=== PATIENT | male | born 1985 | race Caucasian/White ===

== ENCOUNTER 2021-09-22 12:58 | Emergency (ER) | payer BC ==
[2021-09-22] MEDS ORDERED: EPIPEN 2-P0.3 MG/0.3 INJ (15:47)
== END 2021-09-22 15:55 | disposition home or self-care (01) ==
LOC: ER1 12:58
DX: L50.0 Allergic urticaria (principal)
CPT/HCPCS: 96374; 96375; 99282; J1100; J1200

== ENCOUNTER 2021-12-29 06:22 | Emergency (ER) | payer BC ==
[~2021-12-29 06:22] MED LIST: EPIPEN 2-P0.3 MG/0.3 INJ
[2021-12-29 09:25] LABS: HEMOGLOBIN 17.1 gm/dl (14.0-17.5); RED BLOOD COUNT 5.69 M/UL (4.20-5.50); WHITE BLOOD COUNT 6.6 K/UL (4.5-11.0)
[2021-12-29 09:45] LABS: BUN/CREATININE RATIO 11 (0-10)
== END 2021-12-29 12:08 | disposition home or self-care (01) ==
LOC: ER1 06:22
PROVIDERS: Emergency Medicine
DX: R16.1 Splenomegaly, not elsewhere classified (principal); R59.0 Localized enlarged lymph nodes
CPT/HCPCS: 80053; 81001; 83690; 85025; 87040; 96374; 96375; 99284; J2270; J2405; Q9967